=== PATIENT | female | born 1965 | race Caucasian/White ===

== ENCOUNTER → 2019-07-26 14:25 | Outpatient (CLI) | payer OTHER, SELFPAY ==
--- NOTE | ~2019-07-26 | US_ITS ---
EXAMINATION: US transvaginal DATE: 07/26/2019 14:56 INDICATION: Abnormal uterine bleeding TECHNIQUE: Multiple endovaginal sonographic images of the pelvis were obtained. COMPARISON: None. FINDINGS: The uterus measures 10.9 x 5.5 x 6.2 cm. Nabothian cysts are noted in the cervix. The endom etrial complex measures 17 mm. The right ovary measures 4.1 x 2.9 x 3.3 cm and contains a 3.6 cm cyst . The left ovary measures 1.9 x 1.7 x 2.3 cm. There is normal vascular flow in the ovaries. There is no free fluid in the pelvis. IMPRESSION: 1. Endometrial thickening which may be due to hyperplasia, polyp, or malignancy. Endometrial sampling is recommended. 2. 3.6 cm cyst of the right ovary. If the patient is postmenopausal, follow-up ultrasound in one year is recommended. Reviewed, dictated and finalized at location A. [facility] IMPRESSION: 1. Endometrial thickening which may be due to hyperplasia, polyp, or malignancy . Endometrial sampling is recommended. 2. 3.6 cm cyst of the right ovary. If the patient is postmenopausal, follow-up ultrasound in one year is recommended.
== END ==
PROVIDERS: Visit Provider Obstetrics & Gynecology
DX: N93.8 Other specified abnormal uterine and vaginal bleeding (principal); N83.201 Unspecified ovarian cyst, right side
CPT/HCPCS: 76830

== ENCOUNTER 2021-04-14 09:26 | Outpatient (CLI) | payer OTHER, SELFPAY ==
--- NOTE | 2021-04-20 12:31 | WPDHOLTEREM ---
Holter/Event Monitor Holter/Event Monitor Date of procedure: 04/14/21 Holter/Event Procedure: 48 Hr Holter Monitor Indications: Palpitations Conclusion: 1. 48 hour holter on 04/14/21. 2. Predominant rhythm is sinus rhythm. HR range 56-122 bpm; average HR 81 bpm. 3. There are 1,839 premature supraventricular complexes, 4 supraventricular couplets, 53 supraventricular bigeminy and 3 supraventricular trigeminy. There are 2 episodes of atrial tachycardia, fastest at 154 bpm and longest lasting 7 beats. 4. There are 2 premature ventricular complexes. No ventricular tachycardia. 5. No sinoatrial or atrioventricular blocks. No significant pauses greater than 2 seconds. 6. No symptoms available for correlation.
== END 2021-04-14 09:27 | disposition home or self-care (01) ==
LOC: ANHCARD 09:27
PROVIDERS: PCP Family Medicine; Visit Provider Physician Assistant Medical
DX: R00.2 Palpitations (principal)
CPT/HCPCS: 93225; 93226